=== PATIENT | male | born 1975 ===

== ENCOUNTER 2016-08-08 08:04 | Emergency (ER) | payer OTHER, MEDICAID ==
--- NOTE | 2016-08-08 08:34 | UC ---
Lower Extremity/Ankle HPI - HPI Summary HPI Summary: RIGHT FOOT PAIN X 6 DAYS S/P FALL OFF 6 FLIGHT OF STARS 6 DAYS AGO. PAIN AND SWELLING OF THE RIGHT FOOT - History of Current Complaint Chief Complaint: UCLowerExtremity Stated Complaint: RT FOOT INJURY Time Seen by Provider: 08/08/16 08:20 Hx Obtained From: Patient Onset/Duration: Sudden Onset, Lasting Days - 6, Still Present Severity Initially: Moderate Severity Currently: Moderate Aggravating Factor(s): Standing, Ambulation Alleviating Factor(s): Rest, Elevation, Ice Able to Bear Weight: No - Allergies/Home Medications Allergies/Adverse Reactions: Allergies Allergy/AdvReac Type Severity Reaction Status Date / Time No Known Allergies Allergy Verified 08/08/16 08:13 Home Medications: Home Medications Gabapentin CAP(*) [Neurontin 300 CAP(*)] 300 mg PO TID 08/08/16 [History Confirmed 08/08/16] PARoxetine HCL TAB* [Paxil TAB*] 20 mg PO DAILY 08/08/16 [History Confirmed 04/16] Pancrelipase (NF) [Creon (NF)] 1 cap PO TID 08/08/16 [History Confirmed 08/08/16 ] Ramipril CAP* [Altace CAP*] 10 mg PO DAILY 08/08/16 [History Confirmed 08/08/16] oxyCODONE SR TAB(*) [Oxycontin 40 mg (*)] 60 mg PO Q12HR 08/08/16 [History Confirmed 08/08/16] oxyCODONE TAB* [Roxycodone TAB 5 mg*] 30 mg PO Q6H PRN 08/08/16 [History Confirmed 08/08/16] PMH/Surg Hx/FS Hx/Imm Hx Previously Healthy: Yes - Surgical History Surgical History: Yes Surgery Procedure, Year, and Place: R hip. splenectomy. antony. removal of plate in arm and leg. - Family History Known Family History: Negative: Diabetes - Social History Alcohol Use: None Substance Use Type: Prescribed Smoking Status (MU): Current Every Day Smoker Type: Smokeless Tobacco Amount Used/How Often: 1/2 tin daily Review of Systems Constitutional: Negative Skin: Negative Eyes: Negative ENT: Negative Respiratory: Negative Cardiovascular: Negative Musculoskeletal: Other: - RIGHT FOOT PAIN All Other Systems Reviewed And Are Negative: Yes Physical Exam Triage Information Reviewed: Yes Appearance: Well-Appearing, No Pain Distress, Well-Nourished Vital Signs: Initial Vital Signs Temp 98.1 F 08/08/16 08:16 Pulse 107 08/08/16 08:16 Resp 16 08/08/16 08:16 BP 140/89 08/08/16 08:16 Pulse Ox 100 08/08/16 08:16 Vital Signs Reviewed: Yes Eye Exam: Normal Eyes: Positive: Conjunctiva Clear ENT: Positive: Normal ENT inspection, Hearing grossly normal, Pharynx normal Neck: Positive: Supple, Nontender, No Lymphadenopathy Respiratory: Positive: Chest non-tender, Lungs clear, Normal breath sounds Cardiovascular: Positive: RRR, No Murmur, Pulses Normal Musculoskeletal: Positive: Other: - RIGHT FOOT : + SWELLING , + ERYTHEMA, TENDERNESS 3,4,5 METATARSAL LIMITED ROM Diagnostics - Laboratory Diagnostic Studies Completed/Ordered: right foot xray : + fracture right 3rd and 4rth metatarsal Lower Extremity Course/Dx - Differential Dx/Diagnosis Provider Diagnoses: fracute right foot Discharge - Discharge Plan Condition: Stable Disposition: HOME Patient Education Materials: Foot Fracture in Adults (ED) Referrals: No Primary Care Phys,NOPCP [Primary Care Provider] - Jimmie Gauthier MD [Medical Doctor] - As Soon As Possible
[2016-08-08 08:48] VITALS: BP 140/89
--- NOTE | 2016-08-08 08:49 | RAD ---
Indication: Swelling and bruising lateral aspect RIGHT foot post fall 6 days ago. Associated pain. Comparison: None. Technique: AP, lateral, and oblique views RIGHT foot. Report: Grossly nondisplaced fractures at the distal metaphyses of the third and fourth metatarsals. No gross callus formation. Negative for additional fracture. Normal articular alignment. Soft tissue swelling about the forefoot greatest over the lateral aspect. IMPRESSION: Nonarticular third and fourth metatarsal fractures.
== END 2016-08-08 08:57 | disposition home or self-care (01) ==
LOC: UCCORT 08:04
DX: S92.331A Displaced fracture of third metatarsal bone, right foot, initial encounter for closed fracture (principal); S92.341A Displaced fracture of fourth metatarsal bone, right foot, initial encounter for closed fracture; W10.9XXA Fall (on) (from) unspecified stairs and steps, initial encounter; Y92.9 Unspecified place or not applicable; F17.200 Nicotine dependence, unspecified, uncomplicated
CPT/HCPCS: 99203; G0463

== ENCOUNTER 2016-11-12 14:32 | Emergency (ER) | payer OTHER ==
[2016-11-12 15:06] VITALS: BP 154/88
[2016-11-12] MEDS ORDERED: Ketorolac INJ* 60 MG/2 ML VIAL IM ONE (15:21)
--- NOTE | 2016-11-12 15:24 | UC ---
Knee Pain HPI - HPI Summary HPI Summary: The patient comes in today for: 1. Right knee pain: Onset: 5-6 days. Palliative/provocative: Walking and bending it makes it worse. Oxycotin taken (he has this for chronic pancreatitis). Quality: Sharp, piercing. Region: Right knee. Severity: 02/07 Time: Constant. Associated symptoms: Fevers: None. Injury: None. Preious knee problems: 4-5 years ago he had ankle pain. His knee has been "clicking" since. The knee seems to give away at times and will catch. Previous treatment: None. * - History of Current Complaint Chief Complaint: UCLowerExtremity Stated Complaint: RIGHT KNEE PAIN Time Seen by Provider: 11/12/16 15:14 Hx Obtained From: Patient - Allergies/Home Medications Allergies/Adverse Reactions: Allergies Allergy/AdvReac Type Severity Reaction Status Date / Time No Known Allergies Allergy Verified 11/12/16 15:06 Home Medications: Home Medications Omeprazole CAP* [Prilosec CAP* 20 MG] 20 mg PO DAILY 11/12/16 [History Confirmed 11/12/16] PMH/Surg Hx/FS Hx/Imm Hx Previously Healthy: No - Chronic pancreatitis. peripheral neuropathy Cardiovascular History: Hypertension GI/ History: Gastroesophageal Reflux Psychological History: Anxiety - Surgical History Surgical History: Yes Surgery Procedure, Year, and Place: R hip. splenectomy. antony. removal of plate in arm and leg. - Family History Known Family History: Negative: Diabetes - Social History Alcohol Use: None Substance Use Type: None, Prescribed Smoking Status (MU): Current Every Day Smoker Type: Smokeless Tobacco Amount Used/How Often: 1/2 tin daily Review of Systems Constitutional: Negative Skin: Negative Eyes: Negative ENT: Negative Respiratory: Negative Cardiovascular: Negative Gastrointestinal: Negative Genitourinary: Negative Musculoskeletal: Arthralgia All Other Systems Reviewed And Are Negative: Yes Physical Exam Triage Information Reviewed: Yes Appearance: Well-Appearing, No Pain Distress Vital Signs: Initial Vital Signs Temp 99.8 F 11/12/16 14:59 Pulse 102 11/12/16 14:59 Resp 18 11/12/16 14:59 BP 154/88 11/12/16 14:59 Pulse Ox 97 11/12/16 14:59 Eyes: Positive: Conjunctiva Clear. Negative: Discharge ENT: Positive: Hearing grossly normal. Negative: Pharyngeal erythema, Nasal congestion, Nasal drainage, TM bulging, TM dull, TM red, Tonsillar swelling, Tonsillar exudate Dental: Negative: Gross Decay/Caries @, Dental Fracture @ Neck: Positive: Supple, Nontender, No Lymphadenopathy. Negative: Nuchal Rigidity Respiratory: Positive: Chest non-tender, Lungs clear, No respiratory distress, No accessory muscle use. Negative: Rhonchi, Wheezing Cardiovascular: Positive: RRR, No Murmur Abdomen Description: Positive: Nontender, No Organomegaly, Soft. Negative: Distended, Guarding Musculoskeletal: Positive: ROM Limited @, Other: - Right knee: He is not able to fully flex the knee. There is slight warmth, but no erythema. There is no ballotment of the patella. There was no tenderness with palpation of the posterior capsule or the hamstring tendons. There is no tenderness to percussion of the patella. There is tenderness to anterior pressure of the meniscii. There is no marked laxity or pain with stressing the collateral ligaments or the cruciate ligaments. No pes anserin bursa tenderness to palpation. Neurological: Positive: Alert, Muscle Tone Normal Psychological: Positive: Normal Response To Family, Age Appropriate Behavior, Consolable Skin: Negative: rashes, breakdown Diagnostics - Radiology No standard instances Xray Interpretation: Positive (See Comments) - IMPRESSION: Likely small right suprapatellar effusion without fracture. Radiology Interpretation Completed By: Radiologist Knee Pain Course/Dx - Course Course Of Treatment: Patient was told of the x-ray findings and my suspicion that he may have an internal derangement. Recommended that he take the NSAIDS that I prescribed and see Dr. Gauthier tomorrow. If he get worse, he is to go the ER. - Differential Dx/Diagnosis Differential Diagnosis/HQI/PQRI: Fracture (Closed), Sprain Provider Diagnoses: Knee pain with effusion Discharge - Discharge Plan Condition: Stable Disposition: HOME Patient Education Materials: Knee Pain (ED) Referrals: No Primary Care Phys,NOPCP [Medical Doctor] - Jimmie Gauthier MD [Medical Doctor] - As Soon As Possible (Please call Dr. Gauthier' s office as soon as you can for an appointment. If you get worse between now and then please be seen sooner in the ER. )
--- NOTE | 2016-11-12 16:00 | RAD ---
Indication: Right knee pain. 4 views of the right knee demonstrates no fracture. The suggestion of a small suprapatellar effusion noted. IMPRESSION: Likely small right suprapatellar effusion without fracture.
== END 2016-11-12 16:41 | disposition home or self-care (01) ==
LOC: UCCORT 14:32
DX: M25.561 Pain in right knee (principal); M25.461 Effusion, right knee; K86.1 Other chronic pancreatitis; G62.9 Polyneuropathy, unspecified; I10 Essential (primary) hypertension; K21.9 Gastro-esophageal reflux disease without esophagitis; F41.9 Anxiety disorder, unspecified; F17.220 Nicotine dependence, chewing tobacco, uncomplicated
CPT/HCPCS: 96372; 99213; G0463; J1885

== ENCOUNTER 2018-11-01 16:22 | Emergency (ER) | payer OTHER ==
[2018-11-01 17:05] VITALS: BP 139/89
[2018-11-01] MEDS ORDERED: cefTRIAXone VIAL(*) 1,000 MG VIAL IM ONE (18:03)
[2018-11-01] MEDS ORDERED: Mupirocin 2% OINT* TUBE TOPICAL ONE (18:04)
[2018-11-01] MEDS ORDERED: Lidocaine 1%* 5 ML VIAL INJ ONE (18:06)
--- NOTE | 2018-11-01 18:08 | UC ---
Skin Complaint HPI - HPI Summary HPI Summary: 42-year-old male comes in with a chief complaint of a skin infection on the dorsum of his right wrist. Couple days ago patient had an abscess that he believes started and a hair follicle. He opened up with a razor blade and drained a lot of pus out. Spinning having continued redness in the area and it continues to drain. Patient reports his last tetanus was 2016. Did feel little bit sick but no measured fevers. The pain at the area is worse with movement of the wrist and the fingers. No streaking. There is no known puncture wound. No history of MRSA. - History of Current Complaint Chief Complaint: UCSkin Time Seen by Provider: 11/01/18 17:54 Stated Complaint: RIGHT HAND SKIN CONCERN Pain Intensity: 6 - Allergy/Home Medications Allergies/Adverse Reactions: Allergies Allergy/AdvReac Type Severity Reaction Status Date / Time No Known Allergies Allergy Verified 11/01/18 16:55 Home Medications: Home Medications metFORMIN* [Glucophage 1000 MG TAB *] 1,000 mg PO BID 11/01/18 [History Confirmed 11/01/18] PMH/Surg Hx/FS Hx/Imm Hx Previously Healthy: Yes - HEP C Endocrine History: Diabetes Cardiovascular History: Hypertension GI/ History: Gastroesophageal Reflux - Surgical History Surgical History: Yes Surgery Procedure, Year, and Place: R hip. splenectomy. antony. removal of plate in arm and leg. - Family History Known Family History: Negative: Diabetes - Social History Alcohol Use: Rare Substance Use Type: None Smoking Status (MU): Current Every Day Smoker Type: Smokeless Tobacco Amount Used/How Often: 1/2 tin daily Review of Systems All Other Systems Reviewed And Are Negative: Yes Constitutional: Positive: Negative Skin: Positive: Other - SEE HPI Eyes: Positive: Negative ENT: Positive: Negative Respiratory: Positive: Negative Cardiovascular: Positive: Negative Gastrointestinal: Positive: Negative Motor: Positive: Decreased ROM - RT WRIST DUE TO SWELLING Neurovascular: Positive: Negative Musculoskeletal: Positive: Decreased ROM Neurological: Positive: Negative Psychological: Positive: Negative Is Patient Immunocompromised?: No Physical Exam Triage Information Reviewed: Yes Appearance: Well-Appearing, No Pain Distress, Well-Nourished Vital Signs: Initial Vital Signs Temp 97.3 F 11/01/18 16:57 Pulse 118 11/01/18 16:57 Resp 18 11/01/18 16:57 BP 139/89 11/01/18 16:57 Pulse Ox 96 11/01/18 16:57 Vital Signs Reviewed: Yes Eye Exam: Normal Eyes: Positive: Conjunctiva Clear Neck: Positive: Supple Respiratory: Positive: No respiratory distress Neurological: Positive: Alert Psychological: Positive: Age Appropriate Behavior Skin: Positive: Other - DORSUM OF RT WRIST 5CM AREA OF ERYTHEMS WITH DRAINING WOUND IN THE MIDDLE. DECREASED ROM WRIST DUE TO SWELLING. FINGERS FROM. Course/Dx - Course Course Of Treatment: In clinic patient was given Rocephin 1 g IM. The start him on vancomycin 300 mg by mouth 4 times a day. I did take a sample of the drainage has been sent for culture and sensitivity. At this time it appears to be a skin issue and does not involve the tendons. There is no streaking no fever. I let the patient know that if this got worse at all he needed further evaluation and treatment in the emergency department. - Diagnoses Provider Diagnosis: Cellulitis of right wrist Discharge - Sign-Out/Discharge Documenting (check all that apply): Patient Departure All imaging exams completed and their final reports reviewed: No Studies - Discharge Plan Condition: Stable Disposition: HOME Prescriptions: Clindamycin Cap(NF) [Clindamycin Cap 300 mg Cap(NF)] 300 mg PO Q6H #40 cap Patient Education Materials: Cellulitis (ED) Referrals: Rukhsana Marie MD [Primary Care Provider] - Additional Instructions: FOLLOW UP WITH YOUR DOCTOR. GO TO THE EMERGENCY DEPARTMENT IF YOUR CONDITION WORSENS; FEVER, YOU FEEL ILL, SPREAD OF INFECTION OR ANY QUESTIONS OR CONCERNS. - Billing Disposition and Condition Condition: STABLE Disposition: Home
== END 2018-11-01 18:42 | disposition home or self-care (01) ==
LOC: UCCORT 16:22
DX: L03.113 Cellulitis of right upper limb (principal); B19.20 Unspecified viral hepatitis C without hepatic coma; E11.9 Type 2 diabetes mellitus without complications; I10 Essential (primary) hypertension; K21.9 Gastro-esophageal reflux disease without esophagitis; F17.210 Nicotine dependence, cigarettes, uncomplicated
CPT/HCPCS: 87070; 87205; 96372; 99213; G0463; J0696